=== PATIENT | female | born 1990 | race Caucasian/White ===

== ENCOUNTER 2021-04-17 04:59 | Observation (INO) ==
[2021-04-17] MEDS ORDERED: Naloxone 0.4 MG/ML INJ IVP PRN (06:55)
[2021-04-17] MEDS ORDERED: Ondansetron 4 MG/2 ML VIAL IVP PRN (06:55)
[2021-04-17] MEDS ORDERED: *HR* LORazepam 2 MG/ML VIAL IVP PRN (07:15)
[2021-04-17] MEDS ORDERED: levETIRAcetam 250 MG TABLET PO SCH (07:30)
[2021-04-17 07:48] VITALS: TEMP 97.8
[2021-04-17 10:51] VITALS: BP 95/51; PULSE 81
== END 2021-04-17 12:35 | disposition left against medical advice (07) ==
LOC: CDU → SUATTDRO 06:28
PROVIDERS: ADMIT Internal Medicine; ATTEND Internal Medicine

== ENCOUNTER 2021-12-27 19:50 | Inpatient (IN) ==
[2021-12-27] MEDS ORDERED: *HR* LORazepam 1 MG TABLET PO ONE (20:23)
[2021-12-27] MEDS ORDERED: *HR* LORazepam 2 MG/ML VIAL IVP ONE (20:34)
[2021-12-27 20:40] LABS: Basophils # 0.1 K/mcL (0.0-0.2); Basophils % 0.8 %; Eosinophils # 0.1 K/mcL (0.0-0.6); Eosinophils % 1.4 %; Hematocrit 40.8 % (35.3-44.9); Hemoglobin 13.5 g/dL (11.5-15.4); Immature Granulocytes % 0.2 % (0-4); Lymphocytes # 3.1 K/mcL (0.6-4.6); Lymphocytes % 33.9 %; Mean Corpuscular HGB Conc 33.1 g/dL (31.6-35.5); Mean Corpuscular Volume 87.7 fL (83.0-100.0); Mean Platelet Volume 9.3 fL (9.4-12.4); Monocytes # 0.7 K/mcL (0.0-1.3); Monocytes % 7.4 %; Neutrophils # 5.2 K/mcL (1.6-8.9); Platelet Count 438 K/mcL (140-400); Red Blood Count 4.65 M/mcL (3.82-4.97); Red Cell Distribution Width 13.6 % (11.5-14.5); Segmented Neutrophils % 56.3 %; White Blood Count 9.2 K/mcL (4.3-11.1)
[2021-12-27 20:45] LABS: Bilirubin,Urine Negative (Negative); Blood,Urine Negative (Negative); Clarity,Urine Clear (Clear); Color,Urine Light-Yellow (Yellow); Glucose,Urine (UA) Normal (Normal); Ketones,Urine Negative (Negative); Leukocyte Esterase,Urine Negative (Negative); Nitrite,Urine Negative (Negative); Protein,Urine Trace mg/dL (Neg-Trace); Specific Gravity,Urine 1.017 (1.010-1.025); Urobilinogen,Urine Normal (Normal)
[2021-12-27 20:50] LABS: Acetaminophen 37 mcg/mL (10-20); Alanine Aminotransferase 16 Units/L (7-52); Albumin 4.2 g/dL (3.5-5.7); Albumin/Globulin Ratio 1.4 (1.1-2.2); Alkaline Phosphatase 75 Units/L (34-104); Aspartate Amino Transferase 14 Units/L (13-39); BUN/Creatinine Ratio 12 (6-26); Bilirubin,Indirect 0.4 mg/dL (0.0-1.0); Bilirubin,Total 0.4 mg/dL (0.3-1.0); Blood Urea Nitrogen 10 mg/dL (6-20); Calcium 8.9 mg/dL (8.6-10.3); Carbon Dioxide 25 mEq/L (23-29); Chloride 109 mEq/L (98-107); Creatine Kinase 69 Units/L (30-223); Ethanol < 10 mg/dL (Less than 10); Globulin 2.9 g/dL (2.4-3.5); Glucose 116 mg/dL (70-105); Osmolality,Calculated 296 (280-300); Potassium 3.2 mEq/L (3.5-5.1); Salicylate < 2.5 mg/dL (15.0-30.0); Sodium 143 mEq/L (136-145); Total Protein 7.1 g/dL (6.4-8.9); eGFR For African Americans > 60 (> 60); eGFR For Non-African Americans > 60 (> 60)
[2021-12-27 21:01] LABS: Amphetamine Screen,Urine Negative ng/mL (Cutoff=1000); Barbiturate Screen,Urine Positive ng/mL (Cutoff=200); Benzodiazepines Screen,Urine Negative ng/mL (Cutoff=200); Cannabinoid Screen,Urine Negative ng/mL (Cutoff = 50); Cocaine Screen,Urine Negative ng/mL (Cutoff= 300); Opiate Screen,Urine Negative ng/mL (Cutoff=300); Phencyclidine Screen,Urine Negative ng/mL (Cutoff=25)
[2021-12-27 22:12] LABS: Thyroid Stimulating Hormone 2.262 mcIU/mL (0.340-5.600)
[2021-12-28] MEDS ORDERED: Acetaminophen 325 MG TABLET PO ONE (17:28)
[2021-12-29] MEDS: Nicotine 21 MG PATCH.TD24 TD SCH (09:42)
[2021-12-29 12:20] LABS: Influenza A PCR Negative (Negative); Influenza B PCR Negative (Negative); Resp. Syncytial Virus PCR Negative (Negative)
[2021-12-29 12:21] LABS: SARS-CoV-2 by PCR (In House) Negative (Negative)
[2021-12-29] MEDS ORDERED: *HR* LORazepam 2 MG/ML VIAL IM PRN (12:42)
[2021-12-29] MEDS ORDERED: traZODone 50 MG TABLET PO PRN (12:42)
[2021-12-29] MEDS ORDERED: Mag Hydrox/Al Hydrox/Simeth 30 ML UDC PO PRN (12:42)
[2021-12-29] MEDS ORDERED: Haloperidol Lactate 5 MG/ML VIAL IM PRN (12:42)
[2021-12-29] MEDS ORDERED: MOM Conc 10 ML UD.LIQ PO PRN (12:42)
[2021-12-29] MEDS ORDERED: haloperidoL 5 MG TABLET PO PRN (12:42)
[2021-12-29] MEDS ORDERED: *HR* LORazepam 1 MG TABLET PO PRN (12:42)
[2021-12-29] MEDS ORDERED: Acetaminophen 325 MG TABLET PO PRN (12:42)
[2021-12-29] MEDS ORDERED: Acetaminophen/Butalbital/CaffeineTABLET PO PRN (12:52)
[2021-12-29] MEDS: Gabapentin 400 MG CAPSULE PO SCH ×2 (15:22→20:54)
[2021-12-29] MEDS: hydrOXYzine pamoate 25 MG CAPSULE PO PRN ×2 (15:23→20:54)
[2021-12-29] MEDS: lamoTRIgine 25 MG TABLET PO SCH (20:54)
[2021-12-29] MEDS ORDERED: QUEtiapine Fumarate 100 MG TABLET PO SCH ×2 (21:00)
[2021-12-30] MEDS: Levothyroxine 25 MCG TABLET PO SCH (07:09)
[2021-12-30] MEDS: Gabapentin 400 MG CAPSULE PO SCH ×3 (09:11→21:11)
[2021-12-30] MEDS: Nicotine 21 MG PATCH.TD24 TD SCH (09:11)
[2021-12-30] MEDS ORDERED: Acetaminophen 325 MG TABLET PO PRN (13:00)
[2021-12-30] MEDS: Nicotine 2 MG GUM BC PRN (14:26)
[2021-12-30] MEDS: QUEtiapine Fumarate 100 MG TABLET PO SCH (21:11)
[2021-12-30] MEDS: hydrOXYzine pamoate 25 MG CAPSULE PO PRN (21:11)
[2021-12-30] MEDS: lamoTRIgine 25 MG TABLET PO SCH (21:11)
[2021-12-31] MEDS: Levothyroxine 25 MCG TABLET PO SCH (05:54)
[2021-12-31] MEDS: Nicotine 2 MG GUM BC PRN (06:15)
[2021-12-31] MEDS: Gabapentin 400 MG CAPSULE PO SCH ×4 (08:21→20:06)
[2021-12-31] MEDS: Nicotine 21 MG PATCH.TD24 TD SCH (08:21)
[2021-12-31 10:19] VITALS: O2SAT 99
[2021-12-31] MEDS ORDERED: lamoTRIgine 25 MG TABLET PO SCH (21:00)
[2021-12-31] MEDS: QUEtiapine Fumarate 100 MG TABLET PO SCH (21:20)
[2022-01-01] MEDS: Levothyroxine 25 MCG TABLET PO SCH (06:10)
[2022-01-01] MEDS: Gabapentin 400 MG CAPSULE PO SCH (08:23)
[2022-01-01] MEDS: Nicotine 21 MG PATCH.TD24 TD SCH (08:23)
[2022-01-01 08:49] VITALS: BP 128/70; PULSE 101; TEMP 98.7
== END 2022-01-01 10:05 | disposition home or self-care (01) | DRG 753 ==
LOC: EMEROOARM 19:50 → INTOOBSV 12-29 12:36 → 1ANU 12-29 12:36
PROVIDERS: ADMIT Psychiatry & Neurology Psychiatry; ATTEND Psychiatry & Neurology Psychiatry